=== PATIENT | female | born 1955 | race Two or more races ===

== ENCOUNTER 2018-01-06 21:49 | Emergency (ER) | payer SELFPAY ==
[~2018-01-06] VITALS: Ht 162.6 cm; Wt 95.3 kg
[2018-01-06] MEDS ORDERED: KETOROLAC TROMETH 60MG/2ML VIAL IM ONE (22:30)
[2018-01-06] MEDS ORDERED: HYDROcodone-ACET 10/325MG TAB PO ONE (22:45)
[2018-01-07 02:05] VITALS: BP 138/84
== END 2018-01-07 02:00 | disposition home or self-care (01) ==
LOC: ER 21:49
DX: S43.401A Unspecified sprain of right shoulder joint, initial encounter (principal); S63.501A Unspecified sprain of right wrist, initial encounter; S63.91XA Sprain of unspecified part of right wrist and hand, initial encounter; E07.89 Other specified disorders of thyroid; W19.XXXA Unspecified fall, initial encounter; Y93.89 Activity, other specified; Y99.8 Other external cause status; Y92.89 Other specified places as the place of occurrence of the external cause
CPT/HCPCS: 73030; 73080; 73110; 73130; 73200; 96372; 99284; J1885

== ENCOUNTER 2022-12-09 18:27 | Emergency (ER) | payer OTHER ==
[~2022-12-09] VITALS: Ht 157.5 cm; Wt 100.3 kg
[2022-12-09 19:46] VITALS: BP 132/82
[2022-12-09] MEDS ORDERED: methylPREDNISolone SOD SUCC 125 MG/2 ML VL IM ONE (20:45)
[2022-12-09] MEDS ORDERED: cefTRIAXone SOD 1,000 MG VL IM ONE (20:45)
[2022-12-09] MEDS ORDERED: PRED20TA2 PO (20:46)
[2022-12-09] MEDS ORDERED: AZIT250T9 PO (20:46)
[2022-12-09] MEDS ORDERED: ERY05OO OP (20:48)
== END 2022-12-09 23:36 | disposition home or self-care (01) ==
LOC: ER 18:31
DX: J18.9 Pneumonia, unspecified organism (principal); H10.32 Unspecified acute conjunctivitis, left eye
CPT/HCPCS: 71045; 96372; 99283; J0696; J2930